=== PATIENT | female | born 1970 | race African-American/Black ===

== ENCOUNTER 2016-11-26 10:56 | Emergency (ER) | payer OTHER ==
[~2016-11-26] VITALS: Ht 152.4 cm; Wt 57.6 kg
[~2016-11-26 10:56] MED LIST: CIPR500T94 PO; PRED20TA PO; PROAIR HFA8.5 GM INH; PROVENTIL HFA6.7 GM IH
[2016-11-26 11:01] VITALS: BP 138/61
[2016-11-26] MEDS ORDERED: OFLO5DRO OD (11:41)
--- NOTE | 2016-11-26 11:41 | PHYS DOC ---
Past Medical History Past Medical History: Bronchitis, GERD, Other Additional Past Medical Histor: IRREGULAR HEART BEAT Past Surgical History: , Other Additional Past Surgical Histo: right ankle Additional Information: nonsmoker Alcohol Use: None Drug Use: None Adult General Chief Complaint Chief Complaint: EYE PROBLEMS [facility] HPI Patient is a 45 year old female who presents with right eye redness and drainage for 3 days. She has matting of the eyelashes in the mornings. She reports itching and mild pain in the eye. She denies change in her vision or pain with eye movements. She denies injury to the eye or foreign body sensation. She wears glasses but does not use contact lenses. Her granddaughter recently had pink eye. Her PCP is Dr. Deng. Review of Systems Review of Systems Constitutional: Denies fever or chills. [] Eyes: Denies change in visual acuity. Reports right eye redness, itching, mild pain, and drainage. HENT: Denies ear pain, nasal congestion. Reports sore throat. Respiratory: Denies shortness of breath. Reports productive cough. Musculoskeletal: Denies back pain or joint pain. [] Integument: Denies rash or skin lesions. [] Neurologic: Denies headache, focal weakness or sensory changes. [] All systems reviewed and negative unless otherwise stated in the HPI. Allergies Allergies Allergies Coded Allergies Type Severity Reaction Last Updated Verified dextromethorphan HBr Allergy Intermediate rash 06/07/14 Yes doxylamine Allergy Intermediate rash 06/07/14 Yes pseudoephedrine HCl Allergy Intermediate rash 06/07/14 Yes Uncoded Allergies Type Severity Reaction Last Updated Verified salt Allergy Unknown 01/30/16 Physical Exam Physical Exam Constitutional: Well developed, well nourished, no acute distress, non-toxic appearance. [] HENT: Normocephalic, atraumatic, bilateral external ears normal, oropharynx moist, no oral exudates, nose normal. There is no posterior pharyngeal erythema or tonsillar edema. Eyes: PERRLA, EOMI, no discharge. Right eye mild conjunctival injection. No swelling of the eyelids. Visual acuity: OS20/20, OD 20/50, OU 20/20. Neck: Normal range of motion, no tenderness, supple, no stridor. [] Cardiovascular: Heart rate regular rhythm, no murmur [] Lungs & Thorax: Bilateral breath sounds clear to auscultation without wheezes, rales, or rhonchi. Skin: Warm, dry, no erythema, no rash. [] Neurologic: Alert and oriented X 3, normal motor function, normal sensory function, no focal deficits noted. [] Psychologic: Affect normal, judgement normal, mood normal. [] Current Patient Data Vital Signs Vital Signs Date Time Temp Pulse Resp B/P Pulse Ox O2 Delivery O2 Flow Rate FiO2 11/26/16 11:01 98.4 57 18 100 Room Air 98.4 EKG EKG [] Radiology/Procedures Radiology/Procedures [] Course & Med Decision Making Course & Med Decision Making Pertinent Labs and Imaging studies reviewed. (See chart for details) [] Dragon Disclaimer Dragon Disclaimer This electronic medical record was generated, in whole or in part, using a voice recognition dictation system. Departure Departure Impression: Primary Impression: Conjunctivitis Additional Impression: URI (upper respiratory infection) Disposition: HOME, SELF-CARE Condition: STABLE Referrals: MYESHA DENG MD (PCP) NAV MANTILLA MD Patient Instructions: Conjunctivitis (Viral and Bacterial), Upper Respiratory Infection, Adult, [id number] Additional Instructions: Please use the prescribed eye drops as directed for 1 week. Please wash your hands frequently. Avoid rubbing your eyes. Please follow up with the eye doctor listed below if you have any worsening of your eye. Return to the emergency department if you have any new or concerning symptoms. Scripts Ofloxacin (Ocuflox)5 Ml Drops1 Drop OD QID 7 Days Prov:GABRIELE ERNANDEZ 11/26/16 Problem Qualifiers Primary Impression: Conjunctivitis Conjunctivitis type: acute Acute conjunctivitis type: unspecified Laterality: right Qualified Code: H10.31 - Unspecified acute conjunctivitis, right eye Additional Impression: URI (upper respiratory infection) URI type: unspecified viral URI Qualified Code: J06.9 - Acute upper respiratory infection, unspecified GABRIELE ERNANDEZ Nov 26, 2016 11:41
== END 2016-11-26 11:49 | disposition home or self-care (01) ==
LOC: ER 10:56
DX: H10.31 Unspecified acute conjunctivitis, right eye (principal); J06.9 Acute upper respiratory infection, unspecified; K21.9 Gastro-esophageal reflux disease without esophagitis; Z88.8 Allergy status to other drugs, medicaments and biological substances; Z91.018 Allergy to other foods
CPT/HCPCS: 99283

== ENCOUNTER 2019-03-17 12:38 | Emergency (ER) | payer OTHER ==
[~2019-03-17] VITALS: Ht 152.4 cm; Wt 60.8 kg
[~2019-03-17 12:38] MED LIST changes: +ALBU2.5V8 IH; +ALBU2.5V8 INH; +OFLO5DRO OD; -PROAIR HFA8.5 GM INH; -PROVENTIL HFA6.7 GM IH
[2019-03-17 13:51] LABS: BILIRUBIN,URINE SMALL (NEG); CLARITY,URINE CLEAR; COLOR,URINE YELLOW; NITRITE,URINE NEGATIVE (NEG); PROTEIN,URINE NEGATIVE (NEG-TRACE)
[2019-03-17] MEDS ORDERED: DICYCLOMINE 20 MG/2 ML AMPUL. IM ONE (14:00)
[2019-03-17] MEDS ORDERED: HYDROcodone/APAP 5/325MG 1 TAB TABLET PO ONE (14:00)
[2019-03-17] MEDS ORDERED: DICY10CA3 PO (14:04)
--- NOTE | 2019-03-17 14:05 | PHYS DOC ---
Past Medical History Past Medical History: Bronchitis, GERD, Hypertension, Other Additional Past Medical Histor: IRREGULAR HEART BEAT,CHRONIC ABDOMINAL PAIN Past Surgical History: Cholecystectomy, , Other Additional Past Surgical Histo: right ankle Alcohol Use: None Drug Use: None Adult General Chief Complaint Chief Complaint: ABDOMINAL PAIN HPI HPI Patient is a 48 year old [f__sex] who presents with [] Review of Systems Review of Systems Constitutional: Denies fever or chills [] Eyes: Denies change in visual acuity, redness, or eye pain [] HENT: Denies nasal congestion or sore throat [] Respiratory: Denies cough or shortness of breath [] Cardiovascular: No additional information not addressed in HPI [] GI: Denies abdominal pain, nausea, vomiting, bloody stools or diarrhea [] : Denies dysuria or hematuria [] Musculoskeletal: Denies back pain or joint pain [] Integument: Denies rash or skin lesions [] Neurologic: Denies headache, focal weakness or sensory changes [] Endocrine: Denies polyuria or polydipsia [] All other systems were reviewed and found to be within normal limits, except as documented in this note. Current Medications Current Medications Current Medications Medications (Trade) Dose Ordered Sig/Sebas Start Time Stop Time Status Last Admin Dose Admin Acetaminophen/ Hydrocodone Bitart (Lortab 5/325) 1 tab 1X ONCE 03/17/19 14:00 03/17/19 14:01 UNV Dicyclomine HCl (Bentyl) 20 mg 1X ONCE 03/17/19 14:00 03/17/19 14:01 UNV Allergies Allergies Allergies Coded Allergies Type Severity Reaction Last Updated Verified dextromethorphan HBr Allergy Intermediate rash 06/07/14 Yes doxylamine Allergy Intermediate rash 06/07/14 Yes pseudoephedrine HCl Allergy Intermediate rash 06/07/14 Yes Uncoded Allergies Type Severity Reaction Last Updated Verified salt Allergy Unknown 01/30/16 Physical Exam Physical Exam Constitutional: Well developed, well nourished, no acute distress, non-toxic appearance. [] HENT: Normocephalic, atraumatic, bilateral external ears normal, oropharynx moist, no oral exudates, nose normal. [] Eyes: PERRLA, EOMI, conjunctiva normal, no discharge. [] Neck: Normal range of motion, no tenderness, supple, no stridor. [] Cardiovascular:Heart rate regular rhythm, no murmur [] Lungs & Thorax: Bilateral breath sounds clear to auscultation [] Abdomen: Bowel sounds normal, soft, no tenderness, no masses, no pulsatile masses. [] Skin: Warm, dry, no erythema, no rash. [] Back: No tenderness, no CVA tenderness. [] Extremities: No tenderness, no cyanosis, no clubbing, ROM intact, no edema. [] Neurologic: Alert and oriented X 3, normal motor function, normal sensory function, no focal deficits noted. [] Psychologic: Affect normal, judgement normal, mood normal. [] Current Patient Data Vital Signs Vital Signs Date Time Temp Pulse Resp B/P (MAP) Pulse Ox O2 Delivery O2 Flow Rate FiO2 03/17/19 13:01 98.5 56 16 155/72 (99) 99 Room Air 98.5 Lab Values Laboratory Tests Test 03/17/19 13:08 POC Urine HCG, Qualitative Hcg negative (Negative) EKG EKG [] Radiology/Procedures Radiology/Procedures [] Course & Med Decision Making Course & Med Decision Making Pertinent Labs reviewed. (See chart for details) Patient came to the ER for complaints of ongoing chronic abdominal pain which she reports is diffuse and similar to prior episodes. Patient was offered labs and imaging for further evaluation of ongoing symptoms however patient states she has follow-up with her GI doctor and primary care physician and is only wanting treatment for the pain. Patient verbalized understanding of benefits from labs as well as imaging however states she has had plenty of labs and imaging done for this type of pain. Patient's vital signs were stable she is afebrile and nontoxic in appearance. Patient's abdomen was soft with diffuse tenderness on exam. Patient will be given one time dose of Roll[place] while in the ER with education on further care would need to be done by her primary care physician and or GI doctor for chronic pain. Will provide IM dicyclomine and send patient with prescription with discharge paperwork.Education provided on signs and symptoms to return to ER. Discharge instructions were discussed. Patient to follow-up with primary care physician if symptoms persist or with any concerns. Dragon Disclaimer Dragon Disclaimer This electronic medical record was generated, in whole or in part, using a voice recognition dictation system. Departure Departure Impression: Primary Impression: Chronic abdominal pain Disposition: 01 HOME, SELF-CARE Condition: STABLE Referrals: KETURAH SANDOVAL (PCP) Patient Instructions: Abdominal Pain, Chronic Pain Additional Instructions: Follow-up with your primary care physician and gastrointestinal doctor for reevaluation and further care for ongoing chronic abdominal pain. Scripts Dicyclomine Hcl (DICYCLOMINE HCL) 10 Mg Capsule 1 CAP PO PRN Q6HRS PRN for PAIN, #10 CAP 0 Refills Prov: BRYANNA CRONIN APRN 03/17/19 BRYANNA CRONIN APRN Mar 17, 2019 14:05
[2019-03-17 14:06] LABS: BACTERIA,URINE 0 /HPF (0-FEW); RBC,URINE 0 /HPF (0-2); SQUAMOUS EPITHELIAL CELL,UR MOD /LPF; WBC,URINE RARE /HPF (0-4)
[2019-03-17 14:28] VITALS: BP 144/67
== END 2019-03-17 14:34 | disposition home or self-care (01) ==
LOC: ER 12:38
DX: G89.29 Other chronic pain (principal); R10.84 Generalized abdominal pain; K21.9 Gastro-esophageal reflux disease without esophagitis; I10 Essential (primary) hypertension; Z90.49 Acquired absence of other specified parts of digestive tract; Z98.890 Other specified postprocedural states; Z88.8 Allergy status to other drugs, medicaments and biological substances; Z91.02 Food additives allergy status
CPT/HCPCS: 81001; 81025; 96372; 99283; J0500

== ENCOUNTER 2019-12-18 19:07 | Emergency (ER) | payer OTHER ==
[~2019-12-18] VITALS: Ht 152.4 cm; Wt 59.0 kg
[~2019-12-18 19:07] MED LIST changes: -ALBU2.5V8 IH; +DICY10CA3 PO; +PROVENTIL HFA6.7 GM IH
[2019-12-18 19:13] VITALS: BP 162/80
--- NOTE | 2019-12-18 19:18 | PHYS DOC ---
Past Medical History Past Medical History: Bronchitis, GERD, Hypertension, Other Additional Past Medical Histor: IRREGULAR HEART BEAT,CHRONIC ABDOMINAL PAIN Past Surgical History: Cholecystectomy, , Other Additional Past Surgical Histo: right ankle Smoking Status: Former Smoker Alcohol Use: None Drug Use: None Adult General Chief Complaint Chief Complaint: WRIST PAIN HPI HPI Patient is a 49 year old female with a history of hypertension, bronchitis, acid reflux, who presents the ED today complaining of 4 out of 10 sharp intermittent right dorsal wrist pain that began yesterday after she fell down playing with her grandchildren. Patient reports the pain is worse on range of motion. Denies anything specifically relieving the pain. Review of Systems Review of Systems Constitutional: Denies fever or chills [] Musculoskeletal: Reports right wrist pain Integument: Denies rash or skin lesions [] Neurologic: Denies headache, focal weakness or sensory changes [] All other systems were reviewed and found to be within normal limits, except as documented in this note. Allergies Allergies Allergies Coded Allergies Type Severity Reaction Last Updated Verified dextromethorphan HBr Allergy Intermediate rash 06/07/14 Yes doxylamine Allergy Intermediate rash 06/07/14 Yes pseudoephedrine HCl Allergy Intermediate rash 06/07/14 Yes Uncoded Allergies Type Severity Reaction Last Updated Verified salt Allergy Unknown 01/30/16 Physical Exam Physical Exam Constitutional: Well developed, well nourished, no acute distress, non-toxic appearance. [] Skin: Warm, dry, no erythema, no rash. [] Back: No tenderness, no CVA tenderness. [] Extremities: Right wrist with bakers cyst on the ventral aspect, no scaphoid tenderness, full range of motion to the right wrist and fingers. Adequate radial, median, sensation to the right upper extremity. +2 right radial pulse. Cap refill less than 2 seconds right fingers. Neurologic: Alert and oriented X 3, normal motor function, normal sensory function, no focal deficits noted. [] Psychologic: Affect normal, judgement normal, mood normal. [] Current Patient Data Vital Signs Vital Signs Date Time Temp Pulse Resp B/P (MAP) Pulse Ox O2 Delivery O2 Flow Rate FiO2 12/18/19 19:13 98.2 60 19 162/80 (107) 99 Room Air 98.2 EKG EKG [] Radiology/Procedures Radiology/Procedures []PROCEDURE: WRIST 3V RIGHT INDICATION: Injury to the wrist with pain COMPARISON: None. IMPRESSION: Right wrist: 3 views obtained. No evidence of acute fracture or dislocation. Electronically signed by: Eric Mendez MD (12/18/2019 7:33 PM) [id number] DICTATED and SIGNED BY: ERIC MENDEZ MD DATE: 12/18/191932 Course & Med Decision Making Course & Med Decision Making Pertinent Labs and Imaging studies reviewed. (See chart for details) This is a 49-year-old female patient presenting to the ED today for right wrist pain status post falling yesterday. Right wrist x-rays interpreted by radiologist are negative. Patient was placed in a sugar tong splint by the technical operations specialist, neurovascular exam done by me is normal. Ice elevation encouraged. Provided orthopedic doctor for follow-up Dragon Disclaimer Dragon Disclaimer This electronic medical record was generated, in whole or in part, using a voice recognition dictation system. Departure Departure Impression: Primary Impression: Fall from standing Additional Impression: Right wrist sprain Disposition: HOME, SELF-CARE Condition: STABLE Referrals: KETURAH SANDOVAL (PCP) LEX SR II, MD follow up in 1-2 weeks Patient Instructions: Radius Fracture with [facility], Wrist Sprain with [facility] Additional Instructions: You were seen for right wrist sprain your right wrist xray is negative for any acute findings. Try to ice and elevate the extremity. You can take [id number] pain relievers as needed. Follow-up with the orthopedic doctor in 1-2 weeks Problem Qualifiers Primary Impression: Fall from standing Encounter type: initial encounter Qualified Codes: W19.XXXA - Unspecified fall, initial encounter Additional Impression: Right wrist sprain Encounter type: initial encounter Qualified Codes: S63.501A - Unspecified sprain of right wrist, initial encounter QUINTONMEL [employer] MACHINE TENDER Dec 18, 2019 19:18
--- NOTE | 2019-12-18 19:36 | RAD ---
INDICATION: Injury to the wrist with pain COMPARISON: None. IMPRESSION: Right wrist: 3 views obtained. No evidence of acute fracture or dislocation. Electronically signed by: Eric Mendez MD (12/18/2019 7:33 PM) [id number]
== END 2019-12-18 19:47 | disposition home or self-care (01) ==
LOC: ER 19:07
DX: S63.591A Other specified sprain of right wrist, initial encounter (principal); I10 Essential (primary) hypertension; K21.9 Gastro-esophageal reflux disease without esophagitis; G89.29 Other chronic pain; Z90.49 Acquired absence of other specified parts of digestive tract; Z98.890 Other specified postprocedural states; Z88.1 Allergy status to other antibiotic agents; Z88.8 Allergy status to other drugs, medicaments and biological substances; Z87.891 Personal history of nicotine dependence; W18.39XA Other fall on same level, initial encounter; Y93.89 Activity, other specified; Y92.89 Other specified places as the place of occurrence of the external cause; Y99.8 Other external cause status
CPT/HCPCS: 29125; 73110; 99284

== ENCOUNTER 2020-01-28 17:37 | Emergency (ER) | payer OTHER ==
[~2020-01-28] VITALS: Ht 152.4 cm; Wt 60.4 kg
[2020-01-28] MEDS ORDERED: HYDR-3164 PO (19:30)
--- NOTE | 2020-01-28 19:30 | PHYS DOC ---
Past Medical History Past Medical History: A-Fib, Bronchitis, GERD, Hypertension, Other Additional Past Medical Histor: IRREGULAR HEART BEAT,CHRONIC ABDOMINAL PAIN Past Surgical History: Cholecystectomy, , Other Additional Past Surgical Histo: right ankle Smoking Status: Former Smoker Alcohol Use: None Drug Use: None General Adult EDM: Chief Complaint: FINGER INJURY HPI: HPI: Patient is a 49 year old female who presents with tripped and fell in her home 2 days ago and jammed her right middle finger. She states now it is painful and swollen. Patient states she can bend it slightly but is too swollen to fully bend. She rates her pain a 7 out of 10. Review of Systems: Review of Systems: Musculoskeletal: Denies back pain. Right middle finger joint pain. [] Heart Score: Risk Factors: Risk Factors: DM, Current or recent (<one month) smoker, HTN, HLP, family history of CAD, obesity. Risk Scores: Score 0 - 3: 2.5% MACE over next 6 weeks - Discharge Home Score 4 - 6: 20.3% MACE over next 6 weeks - Admit for Clinical Observation Score 7 - 10: 72.7% MACE over next 6 weeks - Early Invasive Strategies Allergies: Allergies: Allergies Coded Allergies Type Severity Reaction Last Updated Verified dextromethorphan HBr Allergy Intermediate rash 06/07/14 Yes doxylamine Allergy Intermediate rash 06/07/14 Yes pseudoephedrine HCl Allergy Intermediate rash 06/07/14 Yes Uncoded Allergies Type Severity Reaction Last Updated Verified salt Allergy Unknown 01/30/16 Physical Exam: PE: Constitutional: Well developed, well nourished, no acute distress, non-toxic appearance. [] HENT: Normocephalic, atraumatic, bilateral external ears normal, oropharynx moist, no oral exudates, nose normal. [] Eyes: PERRLA, EOMI, conjunctiva normal, no discharge. [] Neck: Normal range of motion, no tenderness, supple, no stridor. [] Cardiovascular:Heart rate regular rhythm, no murmur [] Lungs & Thorax: Bilateral breath sounds clear to auscultation [] Abdomen: Bowel sounds normal, soft, no tenderness, no masses, no pulsatile masses. [] Skin: Warm, dry, no erythema, no rash. [] Back: No tenderness, no CVA tenderness. [] Extremities: PIP joint tenderness, no cyanosis, no clubbing, Right middle finger ROM not intact, 2+ edema and bruising. [] Neurologic: Alert and oriented X 3, normal motor function, normal sensory function, no focal deficits noted. [] Psychologic: Affect normal, judgement normal, mood normal. [] Current Patient Data: Vital Signs: Vital Signs Date Time Temp Pulse Resp B/P (MAP) Pulse Ox O2 Delivery O2 Flow Rate FiO2 01/28/20 17:59 98.5 66 16 171/74 (106) 100 Room Air 98.5 EKG: EKG: [] Radiology/Procedures: Radiology/Procedures: [] Course & Med Decision Making: Course & Med Decision Making Pertinent Labs and Imaging studies reviewed. (See chart for details) Cap refill less than 3 seconds. No joint deformity or laxity. Tenderness to the PIP joint. Skin pink warm and dry. There is some bruising and 2+ swelling to the finger. Patient denies any wrist pain or pain in any other finger or the hand. She is full range of motion of the wrist no tenderness or deformity or swelling. Radial pulse strong and present. Xray read by Dr Macario as no acute findings. Finger placed in a finger splint. [] Dragon Disclaimer: Dragon Disclaimer: This electronic medical record was generated, in whole or in part, using a voice recognition dictation system. Departure Departure Impression: Primary Impression: Finger sprain Qualified Codes: S63.692A - Other sprain of right middle finger, initial encounter Disposition: HOME, SELF-CARE Condition: STABLE Referrals: NO PCP (PCP) AMPARO TRUJILLO MD Patient Instructions: Finger Sprain, [id number], Jammed Finger Additional Instructions: Follow up with primary care provider or Orthopedic doctor. Keep splint on until the finger is feeling better and swelling has gone down. Typically 2 weeks. Scripts Hydrocodone/Apap 5-325 (NORCO 5-325 TABLET) 1 Each Tablet 1 TAB PO PRN Q6HRS PRN for PAIN, #5 TAB 0 Refills Prov: CECY DAWN APRN 01/28/20 CECY DAWN APRN Jan 28, 2020 19:30
--- NOTE | 2020-01-28 19:33 | RAD ---
Exam: Right hand 3 views INDICATION: Middle finger jammed TECHNIQUE: Frontal, lateral and oblique views of the right hand Comparisons: None FINDINGS: Bone mineralization is normal. No acute or healed fractures. Soft tissues are unremarkable. Joint spaces are well-maintained. IMPRESSION: No acute osseous abnormality. Electronically signed by: Taran Grewal MD (01/28/2020 7:30 PM) [id number]
[2020-01-28] MEDS ORDERED: HYDROcodone/APAP 5/325MG 1 TAB TABLET PO ONE (19:45)
[2020-01-28 19:53] VITALS: BP 153/69
== END 2020-01-28 19:53 | disposition home or self-care (01) ==
LOC: ER 17:37
DX: S63.692A Other sprain of right middle finger, initial encounter (principal); R60.0 Localized edema; I48.20 Chronic atrial fibrillation, unspecified; K21.9 Gastro-esophageal reflux disease without esophagitis; I10 Essential (primary) hypertension; G89.29 Other chronic pain; Z90.49 Acquired absence of other specified parts of digestive tract; Z90.89 Acquired absence of other organs; Z98.890 Other specified postprocedural states; Z87.891 Personal history of nicotine dependence; Z91.018 Allergy to other foods; Z88.1 Allergy status to other antibiotic agents; Z88.8 Allergy status to other drugs, medicaments and biological substances; W18.2XXA Fall in (into) shower or empty bathtub, initial encounter; Y93.89 Activity, other specified; Y92.89 Other specified places as the place of occurrence of the external cause; Y99.8 Other external cause status
CPT/HCPCS: 29130; 73130; 99283

== ENCOUNTER 2021-01-01 11:01 | Emergency (ER) | payer OTHER ==
[~2021-01-01] VITALS: Ht 152.4 cm; Wt 60.0 kg
[~2021-01-01 11:01] MED LIST changes: +HYDR-3164 PO
[2021-01-01 12:11] LABS: BILIRUBIN,URINE NEGATIVE (NEG); CLARITY,URINE CLEAR; COLOR,URINE YELLOW; NITRITE,URINE NEGATIVE (NEG); PH,URINE 7.5 (<5.0-8.0); PROTEIN,URINE NEGATIVE (NEG-TRACE)
[2021-01-01 12:14] LABS: BACTERIA,URINE 0 /HPF (0-FEW); RBC,URINE 0 /HPF (0-2); WBC,URINE OCC /HPF (0-4)
[2021-01-01] MEDS ORDERED: IV NORMAL SALINE 1000ML BAG 1,000 ML IV ONE (12:30)
[2021-01-01 13:00] LABS: BASO # 0.1 x10^3/uL (0.0-0.2); BASO % 2 % (0-3); EOS # 0.1 x10^3/uL (0.0-0.7); EOS % 2 % (0-3); HEMATOCRIT 38.1 % (36.0-47.0); HEMOGLOBIN 12.6 g/dL (12.0-15.5); LYMPH # 1.4 x10^3/uL (1.0-4.8); LYMPH % 28 % (24-48); MEAN CORPUSCULAR HEMOGLOBIN 31 pg (25-35); MEAN CORPUSCULAR HGB CONC 33 g/dL (31-37); MEAN CORPUSCULAR VOLUME 95 fL (79-100); MONO # 0.4 x10^3/uL (0.0-1.1); MONO % 9 % (0-9); NEUT # 2.9 x10^3/uL (1.8-7.7); NEUT % 59 % (31-73); PLATELET COUNT 237 x10^3/uL (140-400); RED BLOOD COUNT 4.03 x10^6/uL (3.50-5.40); RED CELL DISTRIBUTION WIDTH 13.1 % (11.5-14.5); WHITE BLOOD COUNT 4.9 x10^3/uL (4.0-11.0)
[2021-01-01 13:08] LABS: CALCIUM 8.7 mg/dL (8.5-10.1); CREATININE 0.6 mg/dL (0.6-1.0); GFR 129.1; POTASSIUM 3.4 mmol/L (3.5-5.1)
[2021-01-01 13:14] LABS: ALBUMIN/GLOBULIN RATIO 1.1 (1.0-1.7); MAGNESIUM 1.8 mg/dL (1.8-2.4); TOTAL BILIRUBIN 0.8 mg/dL (0.2-1.0); TOTAL PROTEIN 7.7 g/dL (6.4-8.2)
[2021-01-01 13:30] VITALS: BP 149/81
[2021-01-01] MEDS ORDERED: CONTRAST GIVEN. MC PRN (13:30)
[2021-01-01] MEDS ORDERED: IOHEXOL 300 MG/ML 100ML VIAL. IV ONE (13:30)
--- NOTE | 2021-01-01 14:08 | RAD ---
CT SCAN OF THE ABDOMEN AND PELVIS WITH IV CONTRAST. History: Reason: abdominal pain / Spl. Instructions: OMNI 300 INJ 75 MLS / History: Comparison:None. Procedure: Contiguous axial images of the abdomen and pelvis were performed after the administration of 75 cc o f Omni 300 IV contrast. Oral contrast: No. Findings: The uterus is heterogeneous. The ovaries are not well seen likely due to volume averaging with unopac ified loops of bowel. There is a 1 cm 2 slight calcification in the right hemipelvis. There is a more amorphous 1 cm calcification in the left hemipelvis. The appendix is not well seen but appears normal. There has been prior cholecystectomy. There are multiple calcified granuloma in the liver and spleen. 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 The colon is mostly collapsed limiting its evaluation. There is no mass or lymphadenopathy. There is no free air. There is no free fluid. The urinary bladder appears normal. Impression: 1. Heterogeneity of the fibroid is likely due to fibroid change. 2. The ovaries are not well seen and there is calcifications in the pelvis bilaterally which could be dermoids. This may not be clinically relevant however the patient should have follow-up ultrasound o r MRI as ovarian dermoids also called teratoma have potential for future malignancy. End impression PQRS Compliance Statement: One or more of the following individualized dose reduction techniques were utilized for this examinat ion: 1. Automated exposure control 2. Adjustment of the mA and/or kV according to patient size 3. Use of iterative reconstruction technique Electronically signed by: Bi Solorio III, MD (01/01/2021 2:06 PM) [facility]
[2021-01-01] MEDS ORDERED: HYOS0.1265 SL (14:16)
[2021-01-01] MEDS ORDERED: ONDA4TAB12 PO (14:16)
[2021-01-01] MEDS ORDERED: FAMO-63 PO (14:16)
--- NOTE | 2021-01-01 14:16 | PHYS DOC ---
Past Medical History Past Medical History: A-Fib, Bronchitis, GERD, Hypertension, Other Additional Past Medical Histor: IRREGULAR HEART BEAT,CHRONIC ABDOMINAL PAIN Past Surgical History: Cholecystectomy, , Other Additional Past Surgical Histo: right ankle Smoking Status: Former Smoker Alcohol Use: None Drug Use: None General Adult EDM: Chief Complaint: ABDOMINAL PAIN HPI: HPI: Patient is a 50 year old [f__sex] who presents with [] Review of Systems: Review of Systems: Constitutional: Denies fever or chills. [] Eyes: Denies change in visual acuity. [] HENT: Denies nasal congestion or sore throat. [] Respiratory: Denies cough or shortness of breath. [] Cardiovascular: Denies chest pain or edema. [] GI: Denies abdominal pain, nausea, vomiting, bloody stools or diarrhea. [] : Denies dysuria. [] Musculoskeletal: Denies back pain or joint pain. [] Integument: Denies rash. [] Neurologic: Denies headache, focal weakness or sensory changes. [] Endocrine: Denies polyuria or polydipsia. [] Lymphatic: Denies swollen glands. [] Psychiatric: Denies depression or anxiety. [] Heart Score: Risk Factors: Risk Factors: DM, Current or recent (<one month) smoker, HTN, HLP, family history of CAD, obesity. Risk Scores: Score 0 - 3: 2.5% MACE over next 6 weeks - Discharge Home Score 4 - 6: 20.3% MACE over next 6 weeks - Admit for Clinical Observation Score 7 - 10: 72.7% MACE over next 6 weeks - Early Invasive Strategies Current Medications: Current Medications Medications (Trade) Dose Ordered Sig/[place] Start Time Stop Time Status Last Admin Dose Admin Info (CONTRAST GIVEN -- Rx MONITORING) 1 each PRN DAILY PRN 01/01/21 13:30 01/03/21 13:29 Iohexol (Omnipaque 300 Mg/ml) 75 ml 1X ONCE 01/01/21 13:30 01/01/21 13:31 DC 01/01/21 13:32 75 ML Sodium Chloride 1,000 ml @ 1,000 mls/hr 1X ONCE 01/01/21 12:30 01/01/21 13:29 DC 01/01/21 12:54 1,000 MLS/HR Allergies: Allergies: Allergies Coded Allergies Type Severity Reaction Last Updated Verified dextromethorphan HBr Allergy Intermediate rash 06/07/14 Yes doxylamine Allergy Intermediate rash 06/07/14 Yes pseudoephedrine HCl Allergy Intermediate rash 06/07/14 Yes Uncoded Allergies Type Severity Reaction Last Updated Verified salt Allergy Unknown 01/30/16 Physical Exam: PE: Constitutional: Well developed, well nourished, no acute distress, non-toxic appearance. [] HENT: Normocephalic, atraumatic, bilateral external ears normal, oropharynx moist, no oral exudates, nose normal. [] Eyes: PERRLA, EOMI, conjunctiva normal, no discharge. [] Neck: Normal range of motion, no tenderness, supple, no stridor. [] Cardiovascular:Heart rate regular rhythm, no murmur [] Lungs & Thorax: Bilateral breath sounds clear to auscultation [] Abdomen: Bowel sounds normal, soft, no tenderness, no masses, no pulsatile masses. [] Skin: Warm, dry, no erythema, no rash. [] Back: No tenderness, no CVA tenderness. [] Extremities: No tenderness, no cyanosis, no clubbing, ROM intact, no edema. [] Neurologic: Alert and oriented X 3, normal motor function, normal sensory function, no focal deficits noted. [] Psychologic: Affect normal, judgement normal, mood normal. [] Current Patient Data: Labs: Laboratory Tests Test 01/01/21 11:20 01/01/21 12:54 Urine Collection Type Unknown Urine Color Yellow Urine Clarity Clear Urine pH 7.5 (<5.0-8.0) Urine Specific [place] >=1.030 (1.000-1.030) Urine Protein Negative mg/dL (NEG-TRACE) Urine Glucose (UA) Negative mg/dL (NEG) Urine Ketones (Stick) Negative mg/dL (NEG) Urine Blood Negative (NEG) Urine Nitrite Negative (NEG) Urine Bilirubin Negative (NEG) Urine Urobilinogen Dipstick 1.0 mg/dL (0.2 mg/dL) Urine Leukocyte Esterase Negative (NEG) Urine RBC 0 /HPF (0-2) Urine WBC Occ /HPF (0-4) Urine Squamous Epithelial Cells Mod /LPF Urine Bacteria 0 /HPF (0-FEW) Urine Mucus Mod /LPF White Blood Count 4.9 x10^3/uL (4.0-11.0) Red Blood Count 4.03 x10^6/uL (3.50-5.40) Hemoglobin 12.6 g/dL (12.0-15.5) Hematocrit 38.1 % (36.0-47.0) Mean Corpuscular Volume 95 fL (79-100) Mean Corpuscular Hemoglobin 31 pg (25-35) Mean Corpuscular Hemoglobin Concent 33 g/dL (31-37) Red Cell Distribution Width 13.1 % (11.5-14.5) Platelet Count 237 x10^3/uL (140-400) Neutrophils (%) (Auto) 59 % (31-73) Lymphocytes (%) (Auto) 28 % (24-48) Monocytes (%) (Auto) 9 % (0-9) Eosinophils (%) (Auto) 2 % (0-3) Basophils (%) (Auto) 2 % (0-3) Neutrophils # (Auto) 2.9 x10^3/uL (1.8-7.7) Lymphocytes # (Auto) 1.4 x10^3/uL (1.0-4.8) Monocytes # (Auto) 0.4 x10^3/uL (0.0-1.1) Eosinophils # (Auto) 0.1 x10^3/uL (0.0-0.7) Basophils # (Auto) 0.1 x10^3/uL (0.0-0.2) Sodium Level 142 mmol/L (136-145) Potassium Level 3.4 mmol/L (3.5-5.1) L Chloride Level 106 mmol/L (98-107) Carbon Dioxide Level 29 mmol/L (21-32) Anion Gap 7 (6-14) Blood Urea Nitrogen 10 mg/dL (7-20) Creatinine 0.6 mg/dL (0.6-1.0) Estimated GFR (Cockcroft-Gault) 129.1 BUN/Creatinine Ratio 17 (6-20) Glucose Level 88 mg/dL (70-99) Calcium Level 8.7 mg/dL (8.5-10.1) Magnesium Level 1.8 mg/dL (1.8-2.4) Total Bilirubin 0.8 mg/dL (0.2-1.0) Aspartate Amino Transferase (AST) 17 U/L (15-37) Alanine Aminotransferase (ALT) 20 U/L (14-59) Alkaline Phosphatase 53 U/L (46-116) Total Protein 7.7 g/dL (6.4-8.2) Albumin 4.0 g/dL (3.4-5.0) Albumin/Globulin Ratio 1.1 (1.0-1.7) Lipase 81 U/L (73-393) Laboratory Tests 01/01/21 12:54 Laboratory Tests 01/01/21 12:54 Vital Signs: Vital Signs Date Time Temp Pulse Resp B/P (MAP) Pulse Ox O2 Delivery O2 Flow Rate FiO2 01/01/21 13:30 72 149/81 (103) 100 Room Air 01/01/21 11:20 98.3 16 98.3 EKG: EKG: [] Radiology/Procedures: Radiology/Procedures: [] Course & Med Decision Making: Course & Med Decision Making Pertinent Labs and Imaging studies reviewed. (See chart for details) [] Dragon Disclaimer: Dragon Disclaimer: This electronic medical record was generated, in whole or in part, using a voice recognition dictation system. Departure Departure Impression: Primary Impression: Abdominal pain Disposition: 01 DC HOME SELF CARE/HOMELESS Condition: STABLE Referrals: NO PCP (PCP) ALEXIS AGUILAR Jr, MD, SCOTT S MD Patient Instructions: Abdominal Pain (Nonspecific), Pelvic Mass, Uterine Fibroid, [id number] Additional Instructions: Please follow closely with [facility] for further evaluation of abnormalities noted on your CT today. A copy of CT results provided for you to give to your doctors. Scripts Famotidine (PEPCID) 20 Mg Tablet 20 MG PO BID, #10 TAB Prov: MYESHA JOSEPH DO 01/01/21 Ondansetron (ONDANSETRON ODT) 4 Mg Tab.rapdis 1 TAB PO PRN Q6-8HRS PRN for NAUSEA, #16 TAB Prov: MYESHA JOSEPH DO 01/01/21 Hyoscyamine Sulfate (LEVSIN-SL) 0.125 Mg Tab.subl 0.125 MG SL Q4-6HRS PRN for PAIN, #14 TAB Prov: MYESHA JOSEPH DO 01/01/21 MYESHA JOSEPH DO Jan 01, 2021 14:16
== END 2021-01-01 15:00 | disposition home or self-care (01) ==
LOC: ER 11:01
DX: R10.9 Unspecified abdominal pain (principal); I48.20 Chronic atrial fibrillation, unspecified; K21.9 Gastro-esophageal reflux disease without esophagitis; I10 Essential (primary) hypertension; G89.29 Other chronic pain; Z90.49 Acquired absence of other specified parts of digestive tract; Z98.890 Other specified postprocedural states; Z87.891 Personal history of nicotine dependence; Z88.8 Allergy status to other drugs, medicaments and biological substances
CPT/HCPCS: 36415; 74177; 80053; 81001; 83690; 83735; 85025; 96360; 99285; J7030; Q9967